=== PATIENT | female | born 1995 | race Caucasian/White ===

== ENCOUNTER 2019-07-20 01:11 | Emergency (ER) | payer SELFPAY ==
[~2019-07-20] VITALS: Ht 182.9 cm; Wt 68.0 kg
--- NOTE | 2019-07-20 01:30 | PHYS DOC ---
General Adult EDM: Chief Complaint: DRUG ABUSE HPI: HPI: Patient is a 23-year-old female who does not typically smoke marijuana who happened to smoke to marijuana cigarettes and ate 2 marijuana cookies this evening. Since that time she says she feels like she is going to and she has become very paranoid. They called the ambulance because a were not used to the feeling that they have had tonight. She presents with her significant other who did exactly the same thing. [] Review of Systems: Review of Systems: Constitutional: Denies fever or chills. [] Eyes: Denies change in visual acuity. [] HENT: Denies nasal congestion or sore throat. [] Respiratory: Denies cough or shortness of breath. [] Cardiovascular: Denies chest pain or edema. [] GI: Denies abdominal pain, nausea, vomiting, bloody stools or diarrhea. [] : Denies dysuria. [] Musculoskeletal: Denies back pain or joint pain. [] Integument: Denies rash. [] Neurologic: Denies headache, focal weakness or sensory changes. [] Endocrine: Denies polyuria or polydipsia. [] Lymphatic: Denies swollen glands. [] Psychiatric: Anxious [] Heart Score: Risk Factors: Risk Factors: DM, Current or recent (<one month) smoker, HTN, HLP, family history of CAD, obesity. Risk Scores: Score 0 - 3: 2.5% MACE over next 6 weeks - Discharge Home Score 4 - 6: 20.3% MACE over next 6 weeks - Admit for Clinical Observation Score 7 - 10: 72.7% MACE over next 6 weeks - Early Invasive Strategies Physical Exam: PE: Constitutional: Well developed, well nourished, no acute distress, non-toxic appearance. [] HENT: Normocephalic, atraumatic, bilateral external ears normal, oropharynx moist, no oral exudates, nose normal. [] Eyes: PERRLA, EOMI, conjunctiva normal, no discharge. [] Neck: Normal range of motion, no tenderness, supple, no stridor. [] Cardiovascular:Heart rate regular rhythm, no murmur [] Lungs & Thorax: Bilateral breath sounds clear to auscultation [] Abdomen: Bowel sounds normal, soft, no tenderness, no masses, no pulsatile masses. [] Skin: Warm, dry, no erythema, no rash. [] Back: No tenderness, no CVA tenderness. [] Extremities: No tenderness, no cyanosis, no clubbing, ROM intact, no edema. [] Neurologic: Alert and oriented X 3, normal motor function, normal sensory function, no focal deficits noted. [] Psychologic: Anxious. [] EKG: EKG: [] Radiology/Procedures: Radiology/Procedures: [] Course & Med Decision Making: Course & Med Decision Making Pertinent Labs and Imaging studies reviewed. (See chart for details) [ED course: Evaluation reveals a 23-year-old female intoxicated by an overdose of marijuana. She was watched for little over an hour in the emergency department she cleared up hallucinations and paranoia went away she was able to carry on a good conversation had a steady gait and relatively clear mind patient was safe for discharge home.] Dragon Disclaimer: Dragon Disclaimer: This electronic medical record was generated, in whole or in part, using a voice recognition dictation system. Departure Departure Impression: Primary Impression: Marijuana intoxication Qualified Codes: F12.922 - Cannabis use, unspecified with intoxication with perceptual disturbance Additional Impression: Accidental marijuana overdose Qualified Codes: T40.7X1A - Poisoning by cannabis (derivatives), accidental (unintentional), initial encounter Disposition: HOME, SELF-CARE Condition: STABLE Patient Instructions: Marijuana Abuse and Chemical Dependency Additional Instructions: Return to the emergency department with any new or concerning symptoms VICK EL DO July 20, 2019 01:30
[2019-07-20 05:05] VITALS: BP 120/56
== END 2019-07-20 05:13 | disposition home or self-care (01) ==
LOC: ER 01:11
DX: T40.7X1A Poisoning by cannabis (derivatives), accidental (unintentional), initial encounter (principal); F12.129 Cannabis abuse with intoxication, unspecified; F17.210 Nicotine dependence, cigarettes, uncomplicated; Y92.89 Other specified places as the place of occurrence of the external cause
CPT/HCPCS: 99285